=== PATIENT | female | born 1965 | race African-American/Black ===

== ENCOUNTER 2016-11-29 05:03 | Emergency (ER) | payer OTHER ==
[~2016-11-29] VITALS: Ht 177.8 cm; Wt 86.3 kg
[~2016-11-29 05:03] MED LIST: ATOR20TA; BENA40TA3; CHLO50TA18; IBUP-2029; OMEP20CA10; POTA8TAB4; VICODINE
[2016-11-29] MEDS ORDERED: TRAMADOL 50MG TABLET PO ONE (06:45)
[2016-11-29 06:55] VITALS: BP 135/80
== END 2016-11-29 08:27 | disposition home or self-care (01) ==
LOC: ER 05:03
DX: M77.31 Calcaneal spur, right foot (principal); M79.671 Pain in right foot; E11.9 Type 2 diabetes mellitus without complications; Z88.0 Allergy status to penicillin; Z88.5 Allergy status to narcotic agent
CPT/HCPCS: 73630; 99284

== ENCOUNTER 2017-04-15 22:08 | Emergency (ER) | payer OTHER ==
[~2017-04-15] VITALS: Ht 177.8 cm; Wt 100.0 kg
[~2017-04-15 22:08] MED LIST changes: +CHLO50TA; -CHLO50TA18
[2017-04-15 22:26] VITALS: BP 124/83
== END 2017-04-16 01:02 | disposition left against medical advice (07) ==
LOC: ER 22:08
DX: R51 Headache (principal); E11.9 Type 2 diabetes mellitus without complications; Z53.21 Procedure and treatment not carried out due to patient leaving prior to being seen by health care provider
CPT/HCPCS: 82962

== ENCOUNTER 2018-11-18 05:12 | Emergency (ER) | payer OTHER ==
[~2018-11-18] VITALS: Ht 177.8 cm; Wt 100.0 kg
[~2018-11-18 05:12] MED LIST changes: -BENA40TA3; +BENA40TA9
[2018-11-18] MEDS ORDERED: KETOROLAC 60MG/2ML VIAL IM STA (06:54)
[2018-11-18 09:02] VITALS: BP 148/89
== END 2018-11-18 09:02 | disposition home or self-care (01) ==
LOC: ER 05:12
DX: M17.12 Unilateral primary osteoarthritis, left knee (principal)
CPT/HCPCS: 73562; 96372; 99283; J1885; Z7610

== ENCOUNTER 2019-06-07 13:07 | Emergency (ER) | payer SELFPAY ==
[~2019-06-07] VITALS: Ht 180.3 cm; Wt 100.0 kg
[~2019-06-07 13:07] MED LIST changes: -OMEP20CA10; +OMEP20CA5
[2019-06-07 15:38] VITALS: BP 162/90
== END 2019-06-07 15:39 | disposition home or self-care (01) ==
LOC: ER 13:07
DX: J06.9 Acute upper respiratory infection, unspecified (principal); J40 Bronchitis, not specified as acute or chronic; Z98.890 Other specified postprocedural states; Z88.0 Allergy status to penicillin; Z79.899 Other long term (current) drug therapy; Z88.1 Allergy status to other antibiotic agents; Z88.2 Allergy status to sulfonamides
CPT/HCPCS: 71045; 99283